=== PATIENT | female | born 1985 | race Caucasian/White ===

== ENCOUNTER → 2023-11-04 13:57 | Outpatient (REF) | payer MEDICARE, BC, SELFPAY | LOC: PAVMRI 13:57 | PROVIDERS: ATTENDING PHYSICIAN Surgery; FAMILY PHYSICIAN Family Medicine | DX: D13.4 Benign neoplasm of liver (principal) | CPT/HCPCS: 74183; A9575 ==

== ENCOUNTER 2024-01-23 04:28 | Emergency (ER) | payer MEDICARE, BC, SELFPAY ==
[2024-01-23 04:31] VITALS: BP 196/130
[2024-01-23 04:53] VITALS: BMI 40.3
--- NOTE | 2024-01-23 04:57 | EDRN ---
Pt says she is having symptoms of ketoacidosis. Tuesday the , BS high 400's and pt started vomiting and got confused so pt tried to manage it at home. Pt called physician Jan 19 and pt's insulin pump corrective bolus changed to be more
aggressive for blood sugars over 180. Pt got a bad yeast infection and uncontrolled dandruff so she started diflucan on the first. Pt started vomiting around 0300 this morning. Pt's blood sugar was 360. Pt was confused and says she still is. Pt
has been urinating a lot, had diarrhea and very thirsty. Pt says her yeast infection is still 'really really bad.' Pt had shaking but this has stopped. Pt feels she does not look herself and has been pasty this past week. Pt is allowing insulin
pump to dose her. Pt has dexcom. Pt's blood sugar currently 293 per her meter. From September to present, blood sugars have been running in 200-300's. Pt has felt weak and dizzy. Pt denies sob, abd pain, fever/chills/cough.
[2024-01-23 05:02] LABS: Urine Albumin 2+ (Neg - Trace); Urine Bilirubin Negative (Negative); Urine Character Clear (Clear); Urine Color Yellow; Urine Glucose 3+ (Negative); Urine Ketone 2+ (Negative); Urine Leukocyte Trace (Negative); Urine Nitrite Negative (Negative); Urine Occult Blood Negative (Negative); Urine Urobilinogen Negative (Neg - 1+)
[2024-01-23 05:14] VITALS: BP 141/91
[2024-01-23] MEDS: NSS 1000 IV (05:33)
[2024-01-23 05:43] LABS: % Basophils 0.3 % (0-2); % Eosinophils 1.2 % (0-6); % Immature Granulocytes 0.5 % (0-0.5); % Lymphocytes 19.3 % (20.5-51.1); % Monocytes 4.1 % (1.7-9.3); % Neutrophils 74.6 % (42.2-75.2); Absolute Eosinophils 0.1 10^3/uL (0-0.7); Absolute Immature Granulocytes 0.1 10^3/uL (0-0.05); Absolute Lymphocytes 1.8 10^3/uL (1.2-3.4); Absolute Monocytes 0.4 10^3/uL (0.1-0.6); Hematocrit 33.5 % (37.0-47.0); Mean Corp Hgb Conc. 32.8 g/dL (33.0-37.0); Mean Corpuscular Hgb 23.4 pg (27.0-31.0); Mean Corpuscular Volume 71.3 fL (81.0-99.0); Mean Platelet Volume 9.6 fL (7.4-10.4); Nucleated Red Blood Cells % 0 %; Platelet Count 291 10^3/uL (130-400); Red Cell Dist. Width 14.6 % (11.5-14.5); White Blood Cell Count 9.3 10^3/uL (4.8-10.8)
[2024-01-23 05:52] LABS: HCG, Serum Qualitative Screen Negative
[2024-01-23 05:57] LABS: AST (SGOT) 51 U/L (14-36); Albumin 4.4 g/dl (3.5-5.0); Alkaline Phosphatase 121 U/L (38-126); Blood Urea Nitrogen 12 mg/dl (7-17); Calcium 9.8 mg/dl (8.4-10.2); Carbon Dioxide 25 mmol/L (22-30); Chloride 100 mmol/L (98-107); Estimated Creatinine Clearance > 125 ml/min; Glucose 336 mg/dl (70-99); Potassium 4.6 mmol/L (3.5-5.1); Sodium 136 mmol/L (135-145); Total Bilirubin 0.5 mg/dl (0.2-1.3); Total Protein 7.1 g/dl (6.3-8.2); eGFR > 60.00
[2024-01-23 05:58] LABS: Urine Bacteria Moderate (Negative)
[2024-01-23 06:00] VITALS: BP 140/89
[2024-01-23 06:03] LABS: B-Hydroxybutyrate 0.33 mmol/L (0.02-0.27)
[2024-01-23 06:07] LABS: ALT (SGPT) 60 U/L (0-35)
--- NOTE | 2024-01-23 06:13 | ED.GENMED ---
History of Present Illness
General
Chief Complaint: Blood Sugar Problem
Time Seen by Provider: 01/23/24 06:13
History of Present Illness
History of Present Illness:
HPI: Patient presents with erratic blood sugars over the past 10 days or so. She has frequently been having blood sugars in the 200s range. About a week ago her sales specialist decreased her correction factor from 40 to 20. She has been having
waves of nausea.
EXAM:
GENERAL: Well appearing in no distress, elevated BMI noted
HEENT: Moist oral mucosa
CARDIOVASCULAR: No murmurs, borderline tachycardic heart rate, regular rhythm, No chest wall tenderness
PULMONARY: No respiratory distress, breath sounds are clear and equal
ABDOMEN: Soft with no peritoneal signs, no tenderness
NEUROLOGIC: Excellent strength all extremities, no coordination deficits
PSYCHIATRIC: Appropriate mental status, normal insight and judgement
EXTREMITIES: Nontender, no edema, moves all extremities equally
SKIN: No rash, no lesions
TIME OF INITIAL ENCOUNTER: 6:10 AM
NUMBER AND COMPLEXITY OF PROBLEMS ADDRESSED AT THE ENCOUNTER
� Chronic conditions affecting care: IDDM, thyroid disease, eczema, anxiety, PTSD
� Acute Exacerbation and/or Progression of Chronic Illness: This is an acute problem
� Differential Diagnosis includes: Poorly controlled diabetes, pump malfunction, DKA
AMOUNT AND/OR COMPLEXITY OF DATA TO BE REVIEWED AND ANALYZED
� I performed an independent evaluation of and my interpretation is:
EKG:
CT:
X-rays:
Laboratory Studies: CBC shows a hemoglobin of 11.0 with normal white count, glucose is 336, pH of 7.4 and venous blood gas, bicarb is normal at 25, hCG negative, she does have 2+ ketones in her urine, hydroxybutyrate is 0.33
Other:
� Review of other/old records: The patient was seen here with a cervical radiculopathy in June 2023; review of old records since 2016 frequently show blood sugars in the 140s to 270s range
� Clinical information was obtained by an independent historian: I spoke to her partner at bedside
� Prescriptions/Medications Considered but not given:
� Further testing considered but not performed:
RISK OF COMPLICATIONS AND/OR MORBIDITY OR MORTALITY OF PATIENT MANAGEMENT
� Social determinants of health affecting care:
� Discussion with other providers: I spoke to Dr. Au, covering for her primary sales specialist. He recommends that we increase the basal rate from 3 units/h to 5 units/h�this was done in the ED. He also suggested that
her basal rate is at 2.2 and recommended this increase to 2.4 units/h�this was unclear as to how to change this and it was recommended for her to call the phone number on the pump (recommended by Dr. Au).
� Escalation of care including admission/observation vs risk of discharge considered: The patient was given IV fluids. Blood sugar on the chemistries was 336 and after fluids down to the 290s. She does have some ketones in her
urine however her beta hydroxybutyrate is only minimally elevated and she has no ketones in her urine and her pH is 7.4. We did give a dose of insulin here.
Past History
Past History
ED Past Medical History: HTN, NIDDM, Psychiatric (Anxiety) and Other (Hepatic adenomas, chronic low back pain/narcotic dependent)
ED Past Surgical History: Cholecystectomy and Other (Hepatic adenoma resection February 2017)
Social History
Tobacco: Non-smoker
Alcohol: None
Drug: Marijuana (Medical marijuana use)
Personal: Single
Living: with family
Employment: Not employed
Family History
Family History: Other (Noncontributory)
Phy Exam
Physical Exam
Physical Exam:
See HPI
Course
Orders/Labs/Results
Orders:
Orders
01/23/24 04:55
Urinalysis Reflex To Culture Urgent
Date Specimen was Collected: 01/23/24
Time Specimen was Collected: 04:48
Urine Microscopic Reflex Cult Urgent
Urine Culture Urgent
MAIKOL Source: U
Specimen Description:
Date Specimen was Collected: 01/23/24
Time Specimen was Collected: 04:48
01/23/24 05:19
IV Insert/Care/Rem.- Treatment PRN
0.9% Sodium Chloride 1000 ml [Nss] 1,000 ml IV BOLUS
01/23/24 05:21
Test Result ONCE
01/23/24 05:30
B-Hydroxybutyrate Urgent
Complete Blood Count/With Diff Urgent
Comprehensive Metabolic Panel Urgent
HCG, Serum Qualitative Screen Urgent
pH - Venous Urgent
01/23/24 07:06
Insulin Human Regular [Novolin R] 6 units IV NOW STA
Abnormal Lab Results
01/23/24 01/23/24 01/23/24
04:55 05:30 07:15
Hgb 11.0 L g/dL
(12.0-16.0)
Hct 33.5 L %
(37.0-47.0)
MCV 71.3 L fL
(81.0-99.0)
MCH 23.4 L pg
(27.0-31.0)
MCHC 32.8 L g/dL
(33.0-37.0)
RDW 14.6 H %
(11.5-14.5)
Abs Immat Gran (auto) 0.1 H 10^3/uL
(0-0.05)
Absolute Neuts (auto) 7.0 H 10^3/uL
(1.4-6.5)
Lymphocytes % 19.3 L %
(20.5-51.1)
Creatinine 0.4 L mg/dL
(0.6-1.0)
Glucose 336 H mg/dl
(70-99)
AST 51 H U/L
(14-36)
ALT 60 H U/L
(0-35)
Urine Ketones 2+ A
(Negative)
Leukocyte Esterase Rfl Trace A
(Negative)
Urine RBC 3-6 A /HPF
(0-2)
Urine WBC (Reflex) 11-15 A /HPF
(0-5)
Urine Bacteria (Reflex) Moderate A
(Negative)
Urine Glucose 3+ A
(Negative)
Urine Albumin (Reflex) 2+ A
(Neg - Trace)
B-Hydroxybutyrate 0.33 H mmol/L
(0.02-0.27)
POC Glucose 289 H mg/dl
(70-99)
01/23/24 05:30
01/23/24 05:30
Vital Signs
Initial and Last Documented VS:
Initial Vital Signs
Pulse Resp BP Pulse Ox
118 24 196/130 98
01/23/24 04:31 01/23/24 04:31 01/23/24 04:31 01/23/24 04:31
Last Documented Vital Signs
Pulse Resp BP Pulse Ox
109 21 140/89 98
01/23/24 07:04 01/23/24 07:04 01/23/24 06:00 01/23/24 04:31
*Critical Care Note
Total Time (30-74mins, 75-104mins- exclusive of procedures): Not Applicable
ED Attending Note
-
Portions of this chart may have been created with voice recognition software.� Occasional wrong word or��sound alike� substitutions may have occurred due to the inherent limitations of voice recognition software.
Discharge Plan
Departure
Patient Disposition: Home (Routine Discharge)
Date of Disposition: 01/23/24
Time of Disposition: :24
Patient with high blood pressure during this ER visit?: Yes
Discharge Problem:
Counseling for insulin pump, Acute hyperglycemia
Prescriptions:
No Action
alprazolam 1 MG tablet
1 mg PO DAILY PRN (Reason: anxiety)
omeprazole 20 MG capsule,delayed release(DR/EC)
20 mg PO DAILY
Excedrin Extra Strength 1 TABLET tablet
1 tab PO DAILY PRN (Reason: headache)
fluconazole [Diflucan] 150 mg Tablet
150 mg PO Q3D
lisinopril 40 mg Tablet
40 mg PO DAILY
fluticasone propionate [Flonase] 50 mcg/actuation [place],Suspension
2 spray INTRANASAL DAILY
oxycodone 10 mg Tablet
10 mg PO TID
Humalog U-100 Insulin
continuous subcutaneous infusion DAILY
Patient Comments:
through insulin pump
cranberry
1 tab PO DAILY
Patient Comments:
pt does not know dosage
Referrals:
Shakeel Eastman MD [Family Provider] -
Activity Restrictions/Additional Instructions:
I spoke to Dr. Au, Dr. Flanagan's partner. At his recommendation we have increased your maximum basal rate from 3 units/h to 5 units/h. He had told me that your basal rate was set at 2.2 units/h but recommended this increase to 2.4 units/h.
It is unclear how to change this but he recommends to call the number on the back of the pump for assistance. It is possible that just by increasing the basal rate to the maximum may be enough to improve your sugars. Follow-up with their office by
calling them later today.
Interventions
Interventions:
*Risk Screen - Suicide Last Done: 01/23/24 04:31
*General Assessment Last Done: 01/23/24 04:54
*Neglect/Abuse Screening Last Done: 01/23/24 04:31
ED- Fall Risk Assessment Last Done: 01/23/24 05:42
*ED COVID-19 Vaccine History Last Done: 01/23/24 04:54
YK-Xdiose-Yxjfwrtjyi Assessment Last Done: 01/23/24 05:42
ED- Neurological Assessment Last Done: 01/23/24 05:42
Discharge Date and Time
Print Language: KHMER
[2024-01-23 07:16] LABS: Glucose - Point of Care 289 mg/dl (70-99)
[2024-01-23] MEDS: NOVOLIN R 6 UNITS IV (07:18)
[2024-01-23 07:48] VITALS: BP 144/95
[2024-01-23 07:53] LABS: Glucose - Point of Care 264 mg/dl (70-99)
== END 2024-01-23 08:01 | disposition home or self-care (01) ==
LOC: EMR 04:28
PROVIDERS: Emergency Medicine; EMERGENCY PHYSICIAN Emergency Medicine; FAMILY PHYSICIAN Family Medicine
DX: E11.65 Type 2 diabetes mellitus with hyperglycemia (principal); I10 Essential (primary) hypertension; F41.9 Anxiety disorder, unspecified; M54.50 Low back pain, unspecified; E03.9 Hypothyroidism, unspecified; F43.10 Post-traumatic stress disorder, unspecified; G89.29 Other chronic pain; F11.20 Opioid dependence, uncomplicated; Z79.4 Long term (current) use of insulin; Z96.41 Presence of insulin pump (external) (internal); Z90.49 Acquired absence of other specified parts of digestive tract; Z88.2 Allergy status to sulfonamides; Z91.040 Latex allergy status
CPT/HCPCS: 99284; 96374; 96361; 80053; 81003; 81015; 82010; 82800; 82962; 84703; 85025; 87086

== ENCOUNTER 2024-09-09 19:15 | Emergency (ER) | payer BC, MEDICARE, SELFPAY ==
[2024-09-09 19:30] VITALS: BP 197/110
--- NOTE | 2024-09-09 20:38 | ED.GENMED ---
History of Present Illness
General
Chief Complaint: Chest Pain
Source: patient
Exam Limitations: none
Time Seen by Provider: 09/09/24 20:25
History of Present Illness
History of Present Illness:
39-year-old female insulin-dependent diabetic with strong family history of cardiac disease presents with onset of chest pain today has been constant since its onset but worse with breathing. She notes occasional shortness of breath. She states
this was preceded by what she calls a sleep attack. She gets a pressure in her head and has an overwhelming sensation to sleep. These have been going on since April and has been seen by the family doctor for this. No recent travel or surgery.
No fever or cough. No other complaints at this time
Past History
Past History
ED Past Medical History: HTN, NIDDM, Psychiatric (Anxiety) and Other (Hepatic adenomas, chronic low back pain/narcotic dependent)
ED Past Surgical History: Cholecystectomy and Other (Hepatic adenoma resection February 2017)
Social History
Tobacco: Non-smoker
Alcohol: None
Drug: Marijuana (Medical marijuana use)
Personal: Single
Living: with family
Employment: Not employed
Family History
Family History: Other (Noncontributory)
Phy Exam
Physical Exam
Physical Exam:
General: Well-appearing female no acute respiratory distress
HEENT: Normocephalic atraumatic
Heart: Tachycardic but regular
Lungs: Clear no wheeze
Abdomen is soft nontender nondistended
Extremities: No cyanosis or edema
Scores
Heart Score for Chest Pain Patients
STEMI patient?: No
History: Slightly or Non-Suspicious
ECG: Normal
Age: </= 45 years
Risk Factors: No Risk Factors
Troponin: </= Normal Limit
Heart Score for Chest Pain Patients: 0
Heart Score Risk: 2.5% MACE over next 6 weeks
Course
Orders/Labs/Results
Orders:
Orders
09/09/24 19:41
Electrocardiogram (*1) Urgent
Reason for Study: Other
Other Reason for Exam: Respiratory Distress
Cardiac Monitoring- Treatment ONCE
EKG- Treatment ONCE
IV Insert/Care/Rem.- Treatment PRN
O2 Therapy [RESP] Urgent
Titrate/Wean O2 to maintain O2 sat greater than (%): 93
Special Instructions: TO MAINTAIN CONTINUOUS O2 SATS >/= 93%
Pulse Ox/cont/shift [RESP] Urgent
Quantity: 1
Special Instructions: continuous pulse ox
09/09/24 20:39
CT Chest PE Study Urgent
Comment:
Reason For Exam: chest pain
09/09/24 20:41
Basic Metabolic Panel Urgent
Complete Blood Count/With Diff Urgent
Lipase Urgent
Troponin I Urgent
09/09/24 21:08
Add On- LAB Urgent
Tests Added?: serum hcg
09/09/24 21:31
HCG, Serum Qualitative Screen Urgent
Comment: COLLECT. SPECIMEN IN LAB IS HEMOLYZED
Hep Liver [Bvlii-Pgjo-Znudfsc] Urgent
Potassium Urgent
Abnormal Lab Results
09/09/24 09/09/24
20:41 21:31
Hgb 11.9 L g/dL
(12.0-16.0)
MCV 73.3 L fL
(81.0-99.0)
MCH 23.5 L pg
(27.0-31.0)
MCHC 32.1 L g/dL
(33.0-37.0)
RDW 15.0 H %
(11.5-14.5)
Abs Immat Gran (auto) 0.1 H 10^3/uL
(0-0.05)
Immature Gran % 0.8 H %
(0-0.5)
Creatinine 0.4 L mg/dL
(0.6-1.0)
Glucose 225 H mg/dl
(70-99)
AST 69 H U/L
(14-36)
ALT 78 H U/L
(0-35)
09/09/24 20:41
09/09/24 21:31
Vital Signs
Initial and Last Documented VS:
Initial Vital Signs
Temp Pulse Resp BP Pulse Ox
98.7 F 107 24 197/110 100
09/09/24 19:30 09/09/24 19:30 09/09/24 19:30 09/09/24 19:30 09/09/24 19:30
Last Documented Vital Signs
Temp Pulse Resp BP Pulse Ox
98.7 F 102 14 151/88 99
09/09/24 19:30 09/09/24 23:17 09/09/24 23:17 09/09/24 23:17 09/09/24 23:17
MDM/Problems Addressed
Differential Diagnosis Includes:
Chest pain. Consider musculoskeletal pain versus ACS versus PE versus pancreatitis
EKG shows sinus tachycardia. She is short of breath with pleuritic pain and tachycardic. Will order PE study of chest. Check troponin. Labs and lipase pending otherwise
*Critical Care Note
Total Time (30-74mins, 75-104mins- exclusive of procedures): Not Applicable
Update Note
Update Note:
PE study negative troponin undetectable. Patient resting comfortably. Heart rate is around 100 upon reassessment. Patient is feeling slightly better since waiting. Question possible chest wall discomfort. Recommended Tylenol open. No
indication for admission. Stable for discharge
ED Attending Note
-
Portions of this chart may have been created with voice recognition software.� Occasional wrong word or��sound alike� substitutions may have occurred due to the inherent limitations of voice recognition software.
Discharge Plan
Departure
Patient Disposition: Home (Routine Discharge)
Date of Disposition: 09/10/24
Time of Disposition: 00:27
Patient with high blood pressure during this ER visit?: No
Discharge Problem:
Chest pain
Instructions: Chest Pain PCP Follow Up
Prescriptions:
No Action
alprazolam 1 MG tablet
1 mg PO DAILY PRN (Reason: anxiety)
omeprazole 20 MG capsule,delayed release(DR/EC)
20 mg PO DAILY
Excedrin Extra Strength 1 TABLET tablet
1 tab PO DAILY PRN (Reason: headache)
fluticasone propionate [Flonase] 50 mcg/actuation [place],Suspension
2 spray INTRANASAL HS
oxycodone 10 mg Tablet
10 mg PO TID
Humalog U-100 Insulin
continuous subcutaneous infusion DAILY
Patient Comments:
through insulin pump
losartan 50 mg Tablet
50 mg PO DAILY
cholecalciferol (vitamin D3) [Vitamin D3] 25 mcg (1,000 unit) Tablet
50 mcg PO DAILY
Cranberry Plus Vitamin C
1 cap PO DAILY
Referrals:
Shakeel Eastman MD [Family Provider] -
Activity Restrictions/Additional Instructions:
Please stay hydrated. Use ibuprofen or Tylenol for pain. Return if worse otherwise follow-up with your doctor
Interventions
Interventions:
*Risk Screen - Suicide Last Done: 09/09/24 19:30
*General Assessment Last Done: 09/09/24 19:30
*Neglect/Abuse Screening Last Done: 09/09/24 19:30
*ED- Fall Risk Assessment Last Done: 09/09/24 19:30
*ED COVID-19 Vaccine History Last Done: 09/09/24 19:30
ED- Cardiac Assessment Last Done: 09/09/24 21:01
ED- Neurological Assessment Last Done: 09/09/24 21:01
ED- Pulmonary Assessment Last Done: 09/09/24 21:01
Discharge Date and Time
Print Language: ARMENIAN
[2024-09-09 20:46] VITALS: BP 164/89; BMI 42.4
[2024-09-09 20:48] LABS: % Basophils 0.2 % (0-2); % Eosinophils 2.3 % (0-6); % Immature Granulocytes 0.8 % (0-0.5); % Lymphocytes 28.3 % (20.5-51.1); % Monocytes 5.2 % (1.7-9.3); % Neutrophils 63.2 % (42.2-75.2); Absolute Eosinophils 0.2 10^3/uL (0-0.7); Absolute Immature Granulocytes 0.1 10^3/uL (0-0.05); Absolute Lymphocytes 2.4 10^3/uL (1.2-3.4); Absolute Monocytes 0.4 10^3/uL (0.1-0.6); Absolute Neutrophils 5.4 10^3/uL (1.4-6.5); Hematocrit 37.1 % (37.0-47.0); Hemoglobin 11.9 g/dL (12.0-16.0); Mean Corp Hgb Conc. 32.1 g/dL (33.0-37.0); Mean Corpuscular Hgb 23.5 pg (27.0-31.0); Mean Corpuscular Volume 73.3 fL (81.0-99.0); Mean Platelet Volume 9.4 fL (7.4-10.4); Nucleated Red Blood Cells % 0 %; Platelet Count 300 10^3/uL (130-400); Red Blood Cell Count 5.06 10^6/uL (4.20-5.40); White Blood Cell Count 8.5 10^3/uL (4.8-10.8)
[2024-09-09 21:00] VITALS: BP 159/93
--- NOTE | 2024-09-09 21:08 | EDRN ---
Blood work was ordered in triaged however no blood was collected, this RN collected blood from pt's R ACF, pressure dressing applied
[2024-09-09 21:11] LABS: Blood Urea Nitrogen 13 mg/dl (7-17); Calcium 10.1 mg/dl (8.4-10.2); Carbon Dioxide 26 mmol/L (22-30); Chloride 100 mmol/L (98-107); Estimated Creatinine Clearance > 125 ml/min; Glucose 225 mg/dl (70-99); Lipase 112 U/L (23-300); Sodium 136 mmol/L (135-145); eGFR > 60.00
[2024-09-09 21:26] LABS: Troponin I < 0.012 ng/ml
[2024-09-09 21:48] LABS: HCG, Serum Qualitative Screen Negative
[2024-09-09 21:56] LABS: ALT (SGPT) 78 U/L (0-35); AST (SGOT) 69 U/L (14-36); Alkaline Phosphatase 124 U/L (38-126); Direct Bilirubin 0.3 mg/dl (0.0-0.4); Potassium 4.2 mmol/L (3.5-5.1); Total Bilirubin 0.6 mg/dl (0.2-1.3); Total Protein 7.1 g/dl (6.3-8.2)
[2024-09-09 22:13] VITALS: BP 152/98
[2024-09-09 23:17] VITALS: BP 151/88
[2024-09-10 01:00] VITALS: BP 153/96
== END 2024-09-10 01:10 | disposition home or self-care (01) ==
LOC: EMR 19:15
PROVIDERS: Emergency Medicine; EMERGENCY PHYSICIAN Emergency Medicine; FAMILY PHYSICIAN Family Medicine
DX: R07.81 Pleurodynia (principal); R00.0 Tachycardia, unspecified; R06.02 Shortness of breath; I10 Essential (primary) hypertension; E11.9 Type 2 diabetes mellitus without complications; Z79.4 Long term (current) use of insulin; Z90.49 Acquired absence of other specified parts of digestive tract
CPT/HCPCS: 99284; 71275; 80048; 80076; 83690; 84132; 84484; 84703; 85025; 93005; Q9967

== ENCOUNTER → 2024-10-10 15:06 | Outpatient (REF) | payer MEDICARE, SELFPAY | LOC: PAVMRI 15:06 | PROVIDERS: ATTENDING PHYSICIAN Psychiatry & Neurology Neuromuscular Medicine; FAMILY PHYSICIAN Family Medicine | DX: R56.9 Unspecified convulsions (principal) | CPT/HCPCS: 70553; A9575 ==

== ENCOUNTER 2024-11-19 02:19 | Emergency (ER) | payer MEDICARE, BC, SELFPAY ==
[2024-11-19 02:21] VITALS: BP 202/129
[2024-11-19 02:54] LABS: Urine Albumin 1+ (Neg - Trace); Urine Bilirubin Negative (Negative); Urine Character Clear (Clear); Urine Color Yellow; Urine Glucose Negative (Negative); Urine Ketone Negative (Negative); Urine Leukocyte 1+ (Negative); Urine Nitrite Negative (Negative); Urine Occult Blood Negative (Negative); Urine Specific Gravity 1.005 (<1.030); Urine Urobilinogen Negative (Neg - 1+)
[2024-11-19 03:35] LABS: Urine Amorphous Seen; Urine Squamous Cell >30 /LPF (Few)
[2024-11-19 03:36] LABS: Urine Bacteria Moderate (Negative); Urine Red Blood Cell 0-2 /HPF (0-2)
--- NOTE | 2024-11-19 03:43 | ED.GENMED ---
History of Present Illness
General
Chief Complaint: Urinary Symptoms
Source: patient
Exam Limitations: none
Time Seen by Provider: 11/19/24 03:38
Nursing documentation reviewed up to this point in time: agreed with
History of Present Illness
History of Present Illness:
39-year-old female with a past medical history of autism, migraines, hypertension, diabetes with recurrent UTIs, chronic back pain, panic disorder, who presents the emergency department today with concerns of dysuria and increased urinary frequency.
Patient reports that she has chronic back pain every day but feels like this past week the pain became worse and feels like it is worse in the right side. She also feels like she started develop increased urgency the past few days as well.
Patient is concerned that she may have another UTI. She states that at home she had a temperature of 99 but does not recall having a fever. She does note some nausea but denies any vomiting. She denies any abdominal pain. She denies any pelvic
pain. She denies any hematuria. She denies any genital paresthesias, urinary or fecal incontinence.
Past History
Past History
ED Past Medical History: HTN, NIDDM, Psychiatric (Anxiety) and Other (Hepatic adenomas, chronic low back pain/narcotic dependent)
ED Past Surgical History: Cholecystectomy and Other (Hepatic adenoma resection February 2017)
Social History
Tobacco: Non-smoker
Alcohol: None
Drug: Marijuana (Medical marijuana use)
Personal: Single
Living: with family
Employment: Not employed
Family History
Family History: Other (Noncontributory)
Review of Systems
Review of Systems
All Other Systems: ROS reviewed and negative except as documented in HPI and ROS
Phy Exam
Physical Exam
Physical Exam:
General: Patient is well appearing and in no acute distress; non-toxic
Skin: Warm and dry, no rashes or lesions
Head: Normocephalic, atraumatic
Eyes: Sclera non-icteric. EOMs intact.
Cardiac: Patient mildly tachycardic, no murmurs
Peripheral Vascular: No lower extremity swelling or edema
Pulm: Normal respiratory effort
Abdomen: No abdominal tenderness to palpation, no CVA tenderness bilaterally
Musculoskeletal: Mild paralumbar tenderness noted to palpation bilaterally, no midline spinal tenderness
Neuro: CN II-XII intact, no focal neurologic deficits.
Psychiatric: Appropriate mood and affect.
Course
Orders/Labs/Results
Orders:
Orders
11/19/24 02:38
HCG, Urine Qualitative Screen Urgent
Date Specimen was Collected: 11/19/24
Time Specimen was Collected: 02:37
Comment: ADD ON
Urinalysis Reflex To Culture Urgent
Date Specimen was Collected: 11/19/24
Time Specimen was Collected: 02:37
Urine Microscopic Reflex Cult Urgent
Urine Culture Urgent
MAIKOL Source: U
Specimen Description:
Date Specimen was Collected: 11/19/24
Time Specimen was Collected: 02:37
11/19/24 02:50
Test Result ONCE
11/19/24 03:24
Add On- LAB Urgent
Tests Added?: hcg qualitative urine
11/19/24 04:16
Fluconazole [Diflucan] 150 mg PO NOW STA
Ondansetron HCl [Zofran] 4 mg PO NOW STA
11/19/24 04:26
Amoxicillin 875 mg/Clav 125 mg [Augmentin 875 mg/125 mg] 1 tablet PO NOW STA
Abnormal Lab Results
11/19/24
02:38
Leukocyte Esterase Rfl 1+ A
(Negative)
Urine WBC (Reflex) 11-15 A /HPF
(0-5)
Urine Bacteria (Reflex) Moderate A
(Negative)
Urine Albumin (Reflex) 1+ A
(Neg - Trace)
Vital Signs
Blood pressure: 162/83
Initial and Last Documented VS:
Initial Vital Signs
Temp Pulse Resp BP Pulse Ox
98.0 F 111 20 202/129 98
11/19/24 02:21 11/19/24 02:21 11/19/24 02:21 11/19/24 02:21 11/19/24 02:21
Last Documented Vital Signs
Temp Pulse Resp BP Pulse Ox
98.0 F 111 20 162/83 98
11/19/24 02:21 11/19/24 02:21 11/19/24 02:21 11/19/24 03:55 11/19/24 02:21
MDM/Problems Addressed
Differential Diagnosis Includes:
Differentials include acute cystitis, pyelonephritis, nephrolithiasis
MDM/Problems Addressed:
39-year-old female presents emergency department today with concerns of dysuria and increased urinary frequency. She also notes that her chronic low back pain seems worse. She feels like is worse in the right side. On physical exam she is
well-appearing no acute distress she is afebrile she has no abdominal tenderness to palpation. I did do a bedside ultrasound with my attending Dr. Jean and did not see any evidence of hydronephrosis. In addition, her abdominal MRI on 11/04/2023
showed a normal appearance of both kidneys. Suspect UTI, no indication for blood work at this time patient is nontoxic-appearing afebrile. Considering patient's history of diabetes and sensation of worsening back pain, will treat with 10-day
course to cover for ascending infection. Patient will follow-up with her pain management doctor. Patient does have a history of long QT syndrome however she said her doctor allows her to use Zofran in severe cases. Did give patient dose of Zofran
however patient prefers to take at home IF her nausea becomes severe. Patient stable for discharge.
Chronic conditions affecting care:
Hypertension, long QT syndrome, PCOS, diabetes, autism, migraine
*Pulse Oximetry
Patient hypoxic: no
*Critical Care Note
Total Time (30-74mins, 75-104mins- exclusive of procedures): Not Applicable
Data Reviewed
Review of Other/Old Records Reveals: Records (Reviewed ER physician documentation from 09/09/2024 patient seen for chest pain worse with breathing she had PE study which was negative she was discharged with unremarkable workup)
Source: patient and records
ED Attending Note
-
Portions of this chart may have been created with voice recognition software.� Occasional wrong word or��sound alike� substitutions may have occurred due to the inherent limitations of voice recognition software.
Discharge Plan
Departure
Patient Disposition: Home (Routine Discharge)
Date of Disposition: 11/19/24
Time of Disposition: 04:45
Patient with high blood pressure during this ER visit?: Yes
Condition: Good
Discharge Problem:
Urinary tract infection
Instructions: Urinary Tract Infection, Adult (DC), BLOOD PRESSURE
Prescriptions:
New
amoxicillin-pot clavulanate 875-125 mg tablet
1 tab PO BID 10 Days Qty: 20 0RF
fluconazole 150 mg tablet
150 mg PO Q3D Qty: 2 0RF
No Action
alprazolam 1 MG tablet
1 mg PO DAILY PRN (Reason: anxiety)
omeprazole 20 MG capsule,delayed release(DR/EC)
20 mg PO DAILY
Excedrin Extra Strength 1 TABLET tablet
1 tab PO DAILY PRN (Reason: headache)
fluticasone propionate [Flonase] 50 mcg/actuation [place],Suspension
2 spray INTRANASAL HS
oxycodone 10 mg Tablet
10 mg PO TID
Humalog U-100 Insulin
continuous subcutaneous infusion DAILY
Patient Comments:
through insulin pump
losartan 50 mg Tablet
50 mg PO DAILY
cholecalciferol (vitamin D3) [Vitamin D3] 25 mcg (1,000 unit) Tablet
50 mcg PO DAILY
Cranberry Plus Vitamin C
1 cap PO DAILY
Referrals:
Shakeel Eastman MD [Non-Admitting Privileges, Family Practice]
Activity Restrictions/Additional Instructions:
Augmentin has been sent to your pharmacy. Please take 1 tablet twice daily for 10 days.
Remaining prophylactic diflucan doses have been sent to your pharmacy.
Please follow-up with your primary care provider.
Interventions
Interventions:
*Risk Screen - Suicide Last Done: 11/19/24 02:21
*General Assessment Last Done: 11/19/24 02:21
*Neglect/Abuse Screening Last Done: 11/19/24 02:21
*ED- Fall Risk Assessment Last Done: 11/19/24 02:21
*ED COVID-19 Vaccine History Last Done: 11/19/24 02:21
*Nursing Disposition Last Done: 11/19/24 05:15
ED-Female Genitourinary Assessment Last Done: 11/19/24 05:04
Discharge Date and Time
Discharge Date/Time: 11/19/24 05:15
Print Language: UPPER SORBIAN
[2024-11-19 03:49] LABS: HCG, Urine Qualitative Screen Negative
[2024-11-19] MEDS: ZOFRAN 4 MG PO (04:40)
[2024-11-19] MEDS: AUGMENTIN 875 MG/125 MG 1 TABLET PO (04:40)
[2024-11-19] MEDS: DIFLUCAN 150 MG PO (04:40)
== END 2024-11-19 05:15 | disposition home or self-care (01) ==
LOC: EMR 02:19
PROVIDERS: EMERGENCY PHYSICIAN Emergency Medicine; FAMILY PHYSICIAN Family Medicine
DX: N39.0 Urinary tract infection, site not specified (principal); I10 Essential (primary) hypertension; F84.0 Autistic disorder; G43.909 Migraine, unspecified, not intractable, without status migrainosus; E11.9 Type 2 diabetes mellitus without complications; G89.29 Other chronic pain; M54.9 Dorsalgia, unspecified; I45.81 Long QT syndrome; E05.00 Thyrotoxicosis with diffuse goiter without thyrotoxic crisis or storm; E03.9 Hypothyroidism, unspecified; F41.0 Panic disorder [episodic paroxysmal anxiety]; F11.20 Opioid dependence, uncomplicated; Z87.440 Personal history of urinary (tract) infections; Z86.16 Personal history of COVID-19; Z90.49 Acquired absence of other specified parts of digestive tract; Z88.2 Allergy status to sulfonamides; Z91.040 Latex allergy status
CPT/HCPCS: 99283; 81003; 81015; 81025; 87086